=== PATIENT | male | born 2000 | race Two or more races ===

== ENCOUNTER 2022-10-02 21:54 | Emergency (ER) | payer OTHER ==
[~2022-10-02] VITALS: Ht 165.1 cm; Wt 70.5 kg
[2022-10-02 21:55] VITALS: BP 156/94
== END 2022-10-02 22:52 | disposition home or self-care (01) ==
LOC: EMS 21:56
DX: B34.9 Viral infection, unspecified (principal); F17.210 Nicotine dependence, cigarettes, uncomplicated
CPT/HCPCS: 99283

== ENCOUNTER 2023-02-22 18:42 | Emergency (ER) | payer OTHER ==
[~2023-02-22] VITALS: Ht 167.6 cm; Wt 78.2 kg
[2023-02-22] MEDS ORDERED: SERT-162 PO (18:53)
[2023-02-22 20:02] VITALS: BP 137/70
[2023-02-22] MEDS ORDERED: FLUCONAZOLE 150 MG TABLET PO ONE (21:30)
== END 2023-02-22 21:39 | disposition home or self-care (01) ==
LOC: EMS 18:43
DX: N48.1 Balanitis (principal); F17.210 Nicotine dependence, cigarettes, uncomplicated
CPT/HCPCS: 99283

== ENCOUNTER 2023-05-17 23:14 | Emergency (ER) | payer OTHER ==
[~2023-05-17] VITALS: Ht 167.6 cm; Wt 84.1 kg
[~2023-05-17 23:14] MED LIST: SERT-162 PO
[2023-05-17 23:35] VITALS: BP 122/61; PULSE 70; RESP 16; TEMP 99.1
== END 2023-05-18 03:33 | disposition home or self-care (01) ==
LOC: EMS 23:15
DX: R68.84 Jaw pain (principal); Z53.21 Procedure and treatment not carried out due to patient leaving prior to being seen by health care provider
CPT/HCPCS: 99281; Z7502

== ENCOUNTER 2023-09-03 15:08 | Emergency (ER) | payer OTHER ==
[~2023-09-03] VITALS: Ht 167.6 cm; Wt 86.4 kg
[2023-09-03 15:27] VITALS: TEMP 102.6
[2023-09-03] MEDS ORDERED: HYDROCODONE/ACETAMINOPHEN 5-325 MG TABLET PO ONE (17:00)
[2023-09-03] MEDS ORDERED: KETOROLAC TROMETHAMINE 60 MG/2 ML VIAL IM ONE (17:00)
[2023-09-03] MEDS ORDERED: AMOX TR/POT CLAV 875 MG/125 MG TABLET PO ONE (17:00)
[2023-09-03 17:25] VITALS: BP 124/87; PULSE 87; RESP 17
[2023-09-03] MEDS ORDERED: IBUP-1554 PO ×2 (17:47→18:27)
[2023-09-03] MEDS ORDERED: HYDR-4723 PO ×2 (17:47→18:27)
[2023-09-03] MEDS ORDERED: AMOX1TAB16 PO ×2 (17:47→18:27)
== END 2023-09-03 21:04 | disposition home or self-care (01) ==
LOC: EMS 15:35
DX: K04.7 Periapical abscess without sinus (principal); F41.9 Anxiety disorder, unspecified; F32.A Depression, unspecified; F17.210 Nicotine dependence, cigarettes, uncomplicated
CPT/HCPCS: 99283; 96372; J1885

== ENCOUNTER 2023-11-15 09:03 | Emergency (ER) | payer OTHER ==
[~2023-11-15] VITALS: Ht 167.6 cm; Wt 85.0 kg
[~2023-11-15 09:03] MED LIST changes: +AMOX1TAB16 PO; +HYDR-4723 PO; +IBUP-1554 PO
[2023-11-15 09:13] VITALS: BP 145/94; PULSE 59; RESP 18; TEMP 98.2
== END 2023-11-15 09:52 | disposition home or self-care (01) ==
LOC: EMS 09:03
DX: K02.9 Dental caries, unspecified (principal); F41.9 Anxiety disorder, unspecified; F32.A Depression, unspecified; I10 Essential (primary) hypertension; F17.210 Nicotine dependence, cigarettes, uncomplicated; F12.90 Cannabis use, unspecified, uncomplicated
CPT/HCPCS: 99281; Z7502

== ENCOUNTER 2025-08-13 21:02 | Emergency (ER) | payer OTHER ==
[~2025-08-13] VITALS: Ht 165.1 cm; Wt 86.4 kg
[~2025-08-13 21:02] MED LIST changes: +AMOX-457 PO; -AMOX1TAB16 PO; +HYDR-4062 PO; -HYDR-4723 PO
[2025-08-13 21:20] VITALS: TEMP 98.1
[2025-08-13] MEDS: ACETAMINOPHEN 325 MG TABLET PO ONE (23:42)
[2025-08-14 00:57] VITALS: BP 138/87; PULSE 83; RESP 18; O2SAT 98
== END 2025-08-14 01:56 | disposition home or self-care (01) ==
LOC: EMS 21:04
DX: S00.03XA Contusion of scalp, initial encounter (principal); F32.A Depression, unspecified; F41.9 Anxiety disorder, unspecified; I10 Essential (primary) hypertension; F12.90 Cannabis use, unspecified, uncomplicated; F17.210 Nicotine dependence, cigarettes, uncomplicated; R42 Dizziness and giddiness; Z79.899 Other long term (current) drug therapy; Y08.89XA Assault by other specified means, initial encounter; Y93.89 Activity, other specified; Y92.89 Other specified places as the place of occurrence of the external cause; Y99.8 Other external cause status
CPT/HCPCS: 70450; 99284